=== PATIENT | male | born 1950 | race Caucasian/White ===

== ENCOUNTER 2016-11-23 23:42 | Emergency (ER) | payer MEDICARE, BC ==
[~2016-11-23] VITALS: Ht 180.3 cm; Wt 70.9 kg
[2016-11-24 00:16] VITALS: TEMP 98.2
[2016-11-24] MEDS ORDERED: BYSTOLIC5 MG PO (00:16)
[2016-11-24 01:46] LABS: BASO % 0.3 % (0.0-2.0); EOS # 0.2 (0.0-0.7); EOS % 3.3 % (0-4.0); GRAN # 3.3 (1.4-6.5); GRAN % 57.2 % (42.2-75.2); HEMATOCRIT 39.6 % (42.0-52.0); HEMOGLOBIN 13.4 g/dl (13.5-18.0); LYMPH # 1.8 (1.2-3.4); LYMPH % 30.5 % (20.0-51.0); MEAN CELL VOLUME 93 fl (80.0-100.0); MEAN CORPUSCULAR HEMOGLOBIN 32 pg (27.0-31.0); MEAN CORPUSCULAR HGB CONC 34 g/dl (33.0-37.0); MEAN PLATELET VOLUME 9.4 fl (7.4-10.4); MONO # 0.5 (0.1-0.6); MONO % 8.4 % (1.7-9.3); PLATELET COUNT 188 K/mm3 (130-400); RED BLOOD COUNT 4.24 M/mm3 (4.20-5.60); REDCELL DISTRIBUTION WIDTH-CV 13.2 % (11.5-14.5); WHITE BLOOD COUNT 5.7 K/mm3 (4.8-10.8)
[2016-11-24 01:55] LABS: ADJUSTED CALCIUM 8.7 mg/dL (8.4-10.2); ALANINE AMINOTRANSFERASE 33 U/L (21-72); ALBUMIN 4.4 gm/dL (3.5-5.0); ALKALINE PHOSPHATASE 85 U/L (50-136); ANION GAP 13 mmol/L (7-16); BILIRUBIN,TOTAL 0.5 mg/dL (0.0-1.0); BLOOD UREA NITROGEN 11 mg/dL (9-20); CARBON DIOXIDE 23 mmol/L (22-30); CHLORIDE 107 mmol/L (98-107); CREATININE, serum 0.74 mg/dL (0.66-1.25); GLUCOSE 93 mg/dL (74-106); POTASSIUM 4.1 mmol/L (3.4-5.0); SODIUM 143 mmol/L (137-145); TOTAL PROTEIN 7.2 gm/dL (6.4-8.2)
[2016-11-24 02:07] LABS: B-TYPE NATRIURETIC PEPTIDE 384 pg/mL (0-125); TROPONIN-I < 0.012 ng/mL (0.000-0.034)
[2016-11-24] MEDS ORDERED: ATIVAN 0.50.5 MG/TAB PO (02:52)
[2016-11-24 03:08] VITALS: BP 167/89; PULSE 72
== END 2016-11-24 03:12 | disposition home or self-care (01) ==
LOC: COL.ER 23:42
PROVIDERS: Nurse Practitioner
DX: R07.89 Other chest pain (principal); F41.9 Anxiety disorder, unspecified; I10 Essential (primary) hypertension

== ENCOUNTER 2018-04-07 14:25 | Day surgery (SDC) | payer MEDICARE, BC ==
[~2018-04-07] VITALS: Ht 180.3 cm; Wt 73.1 kg
[~2018-04-07 14:25] MED LIST: ATIVAN 0.50.5 MG/TAB PO; BYSTOLIC5 MG PO; CENTRUM SILVER1 CTB PO
[2018-04-07 14:49] VITALS: BP 132/89; PULSE 74; TEMP 97
[2018-04-07 16:25] VITALS: BP 112/74; PULSE 80
[2018-04-07 16:40] VITALS: BP 105/75; PULSE 65
[2018-04-07 16:55] VITALS: BP 137/84; PULSE 67
== END 2018-04-07 17:00 | disposition home or self-care (01) ==
LOC: SDCO 14:25
DX: D12.2 Benign neoplasm of ascending colon (principal); K92.1 Melena; K21.0 Gastro-esophageal reflux disease with esophagitis; I10 Essential (primary) hypertension; Z87.891 Personal history of nicotine dependence; Z80.0 Family history of malignant neoplasm of digestive organs
CPT/HCPCS: J2704; J7120

== ENCOUNTER → 2018-07-08 | Outpatient (CLI) | payer MEDICARE, BC | LOC: ZCOL.LAB 17:22 | DX: Z01.89 Encounter for other specified special examinations (principal) ==

== ENCOUNTER 2018-09-06 23:52 | Emergency (ER) | payer MEDICARE, BC ==
[~2018-09-06] VITALS: Ht 180.3 cm; Wt 73.6 kg
[2018-09-06 23:59] VITALS: TEMP 97.5
[2018-09-07 00:47] LABS: BASO # 0.1 (0.0-0.2); BASO % 0.7 % (0.0-2.0); EOS % 0.4 % (0-4.0); GRAN # 7.4 (1.4-6.5); GRAN % 81.2 % (42.2-75.2); HEMATOCRIT 37.6 % (42.0-52.0); HEMOGLOBIN 13.7 g/dl (13.5-18.0); LYMPH # 0.6 (1.2-3.4); LYMPH % 6.2 % (20.0-51.0); MEAN CELL VOLUME 93 fl (80.0-100.0); MEAN CORPUSCULAR HEMOGLOBIN 34 pg (27.0-31.0); MEAN CORPUSCULAR HGB CONC 36 g/dl (33.0-37.0); MEAN PLATELET VOLUME 9.6 fl (7.4-10.4); MONO # 0.8 (0.1-0.6); MONO % 8.7 % (1.7-9.3); PLATELET COUNT 375 K/mm3 (130-400); RED BLOOD COUNT 4.03 M/mm3 (4.20-5.60); REDCELL DISTRIBUTION WIDTH-CV 12.4 % (11.5-14.5)
[2018-09-07 00:54] LABS: ALBUMIN 4.9 gm/dL (3.5-5.0); BILIRUBIN,TOTAL 0.7 mg/dL (0.0-1.0); CALCIUM 10.3 mg/dL (8.4-10.2); CREATININE, serum 2.08 mg/dL (0.66-1.25); POTASSIUM 4.2 mmol/L (3.4-5.0); TOTAL PROTEIN 8.8 gm/dL (6.4-8.2)
[2018-09-07 02:45] VITALS: PULSE 79
[2018-09-07 03:30] VITALS: BP 129/90
== END 2018-09-07 03:40 | disposition short-term general hospital (02) ==
LOC: COL.ER 23:52
PROVIDERS: Emergency Medicine
DX: K94.09 Other complications of colostomy (principal); I10 Essential (primary) hypertension; E86.0 Dehydration; N17.9 Acute kidney failure, unspecified; E87.8 Other disorders of electrolyte and fluid balance, not elsewhere classified; C18.9 Malignant neoplasm of colon, unspecified; Z87.891 Personal history of nicotine dependence; Z90.89 Acquired absence of other organs
CPT/HCPCS: J7030

== ENCOUNTER 2019-04-19 10:32 | Emergency (ER) | payer MEDICARE, BC ==
[~2019-04-19] VITALS: Ht 180.3 cm; Wt 64.5 kg
[2019-04-19 10:37] VITALS: BP 169/83
[2019-04-19] MEDS ORDERED: LOMOTIL 0.025 M1 TAB PO (11:01)
[2019-04-19] MEDS ORDERED: IMODIUM 2MG CAPS2 MG PO (11:02)
[2019-04-19] MEDS ORDERED: PROTONIX 40MG T40 MG PO (11:02)
[2019-04-19 12:05] VITALS: PULSE 64; TEMP 97.8
== END 2019-04-19 12:05 | disposition home or self-care (01) ==
LOC: COL.ER 10:32
DX: S61.012A Laceration without foreign body of left thumb without damage to nail, initial encounter (principal); I10 Essential (primary) hypertension; W26.0XXA Contact with knife, initial encounter; Y92.009 Unspecified place in unspecified non-institutional (private) residence as the place of occurrence of the external cause

== ENCOUNTER → 2019-04-26 | Outpatient (CLI) | payer MEDICARE, BC ==
[~2019-04-26] MED LIST changes: +IMODIUM 2MG CAPS2 MG PO; +LOMOTIL 0.025 M1 TAB PO; +PROTONIX 40MG T40 MG PO
[2019-04-26 10:31] VITALS: BP 146/70; PULSE 76; TEMP 98.3
== END ==
LOC: COL.ER 10:15
DX: S61.012D Laceration without foreign body of left thumb without damage to nail, subsequent encounter (principal); X58.XXXD Exposure to other specified factors, subsequent encounter

== ENCOUNTER 2019-05-14 05:09 | Emergency (ER) | payer MEDICARE, BC ==
[~2019-05-14] VITALS: Ht 180.3 cm; Wt 65.0 kg
[2019-05-14 06:47] LABS: BASO % 0.3 % (0.0-2.0); EOS # 0.1 (0.0-0.7); GRAN # 5.9 (1.4-6.5); GRAN % 82.8 % (42.2-75.2); HEMOGLOBIN 11.1 g/dl (13.5-18.0); LYMPH # 0.7 (1.2-3.4); MEAN CELL VOLUME 90 fl (80.0-100.0); MEAN CORPUSCULAR HEMOGLOBIN 27 pg (27.0-31.0); MEAN CORPUSCULAR HGB CONC 30 g/dl (33.0-37.0); MEAN PLATELET VOLUME 10.1 fl (7.4-10.4); MONO # 0.4 (0.1-0.6); MONO % 5.5 % (1.7-9.3); PLATELET COUNT 170 K/mm3 (130-400); RED BLOOD COUNT 4.07 M/mm3 (4.20-5.60); REDCELL DISTRIBUTION WIDTH-CV 14.5 % (11.5-14.5)
[2019-05-14 06:51] LABS: HEMATOCRIT 36.5 % (42.0-52.0)
[2019-05-14 06:58] LABS: ALBUMIN 4.1 gm/dL (3.5-5.0); BILIRUBIN,TOTAL 0.5 mg/dL (0.0-1.0); CALCIUM 8.8 mg/dL (8.4-10.2); CREATININE, serum 0.88 (0.66-1.25); POTASSIUM 3.9 mmol/L (3.4-5.0); TOTAL PROTEIN 7.1 gm/dL (6.4-8.2)
[2019-05-14 08:10] VITALS: BP 160/86; PULSE 67
== END 2019-05-14 08:10 | disposition home or self-care (01) ==
LOC: COL.ER 05:09
PROVIDERS: Emergency Medicine
DX: R10.84 Generalized abdominal pain (principal); I10 Essential (primary) hypertension; Z90.89 Acquired absence of other organs
CPT/HCPCS: J1170; J2405; J3010; J7030; Q9967

== ENCOUNTER → 2020-10-25 | Day surgery (SDC) | payer MEDICARE, BC ==
[~2020-10-25] VITALS: Ht 180.3 cm; Wt 67.8 kg
[~2020-10-25] MED LIST changes: +ULTRAM 50MG TAB50 MG PO
[2020-10-25 10:13] VITALS: BP 166/104; PULSE 73; TEMP 98
[2020-10-25 11:15] VITALS: BP 125/79; PULSE 68; TEMP 97.6
--- NOTE | 2020-10-25 11:15 | NUR ---
PT TO BAY 9 VIA CART FROM ENDO ROOM, WALKED TO CHAIR, IN ROOM. ALERT AND TALKATIVE, DECLINES FOOD OR DRINK, CALL LIGHT IN REACH
[2020-10-25 11:30] VITALS: BP 146/77; PULSE 66
[2020-10-25 11:45] VITALS: BP 151/84; PULSE 66
--- NOTE | 2020-10-25 11:45 | NUR ---
DR PHAM TALK WITH PT. IV D'CD INTACT, REIVEWED DISCHARGE INST. WITH PT ON MODERATE SEDATION PRECAUTIONS AND FOLLOWUP WITH VERBAL UNDERSTANDING. PT UP AND DRESSED, DISCHARGED VIA W/C TO CAR WITH AT 1200
== END ==
LOC: SDCO 09:36
DX: K62.4 Stenosis of anus and rectum (principal); Z12.11 Encounter for screening for malignant neoplasm of colon; Z85.048 Personal history of other malignant neoplasm of rectum, rectosigmoid junction, and anus; Z98.0 Intestinal bypass and anastomosis status; I10 Essential (primary) hypertension; Z79.899 Other long term (current) drug therapy; Z87.891 Personal history of nicotine dependence
CPT/HCPCS: J2704; J7120

== ENCOUNTER 2023-05-25 23:47 | Inpatient (IN) | payer MEDICARE, BC ==
[~2023-05-25] VITALS: Ht 180.3 cm; Wt 59.4 kg
[~2023-05-25 23:47] MED LIST changes: +ASPIRIN E.C. 8181 MG PO; +BENTYL 20MG20 MG/TAB PO; +NORCO 325 MG-51 TAB PO
[2023-05-26] VITALS (9 sets, daily range): BP systolic 124–162; BP diastolic 66–77; PULSE 69–98; TEMP 97.8–98.4
[2023-05-26 00:10] LABS: BASO % 0.2 % (0.0-2.0); EOS % 0.1 % (0.0-4.0); GRAN # 12.4 K/mm3 (1.4-6.5); GRAN % 86.4 % (42.2-75.2); HEMATOCRIT 41.5 % (42.0-52.0); HEMOGLOBIN 13.8 g/dl (13.5-18.0); LYMPH # 0.8 K/mm3 (1.2-3.4); LYMPH % 5.6 % (20.0-51.0); MEAN CELL VOLUME 91 fl (80.0-100.0); MEAN CORPUSCULAR HEMOGLOBIN 30 pg (27-31); MEAN CORPUSCULAR HGB CONC 33 g/dl (33.0-37.0); MEAN PLATELET VOLUME 9.4 fl (7.4-10.4); MONO # 1.1 K/mm3 (0.1-0.6); MONO % 7.4 % (1.7-9.3); PLATELET COUNT 258 K/mm3 (130-400); RED BLOOD COUNT 4.55 M/mm3 (4.20-5.60); REDCELL DISTRIBUTION WIDTH-CV 12.6 % (11.5-14.5)
[2023-05-26 00:34] LABS: ALBUMIN 3.5 gm/dL (3.4-4.8); BILIRUBIN,TOTAL 5.2 mg/dL (0.2-1.2); CALCIUM 9.6 mg/dL (8.4-10.2); CREATININE, serum 0.91 mg/dL (0.72-1.25); TOTAL PROTEIN 7.8 gm/dL (6.2-8.1)
--- NOTE | 2023-05-26 04:04 | NUR ---
pt arrived to room 328 at 0335. pt admission complete, med rec complete, physical shift assessment complete. pt ambulates ind without issue. pt a&o x4 but reports occasional confusion. son in room to help complete admission. pt npo per orders. pt had c/o pain when deep breathing but denies pain at this moment. pt low risk for falls but still educated to call for assistance to bathroom. call light in place. all needs met at this time.
--- NOTE | 2023-05-26 08:20 | NUR ---
pt a&ox4 resting in bed, daughter at bedside. pt denies pain. meds given and assessment complete. abdominal incisions from previous procedures are cdi. scds to ble. fluids infusing into left forearm at 125ml/hr. pt denies needs at this time. call light in reach.
--- NOTE | 2023-05-26 10:20 | NUR ---
Initial visit; Patient and family thanked [employer] for looking in on him and offering God's blessings and a "get well" message. Patient using the phone and appeared to not want to visit. [employer] wished them a nice Holiday Season.
--- NOTE | 2023-05-26 13:40 | NUR ---
boom stick worker met with patient and daughter, Mayelin, to discuss discharge planning. Patient reports he lives in [place] with his son, Morales, P# [phone]. PCP is Dr. Jain and preferred pharmacy [facility]. Patient has no issues with affording medications. Patient reports he has a DPOA-HC and it is Morales but patient does not have the copy of the form with him. Patient expressed he would try to bring it in next hospital stay. Patient has a blood pressure machine at home. Patient reports he is indpendent with ADLS. Patient has transportation to go to and from appointments with either Mayelin or Morales. Patient would like to return home at time of discharge. Discharge Plan: Home
--- NOTE | 2023-05-26 13:50 | NUR ---
pt off floor for HIDA scan
--- NOTE | 2023-05-26 16:01 | NUR ---
pt back on floor in room
--- NOTE | 2023-05-26 20:00 | NUR ---
report received from [facility]. pt resting in bed with son at bedside. pt larry pain. son states pt has been seeing things and talking to his late . pt alert and oriented with some confusion noted. call light in place. all needs met at this time.
--- NOTE | 2023-05-26 20:25 | NUR ---
updated operations project manager, dr hurley of pt confusion and lack of sleep. new order for benadryl 25mg po. call light in place. all needs met at this time.
--- NOTE | 2023-05-26 22:18 | NUR ---
shift assessment complete, see documentation. pt confused tonight. alert and oriented to self/place. daughter is at bedside. 25mg benadryl given per orders. pt denies pain. call light in place. all needs met at this time.
[2023-05-27] VITALS (19 sets, daily range): BP systolic 124–174; BP diastolic 59–95; PULSE 56–125; TEMP 97.4–101.2
--- NOTE | 2023-05-27 02:29 | NUR ---
pt had c/o chills and felt like he was running a fever. pt was covered with multiple blankets and did feel warm to the touch. pt running low grade temp of 99.2. pt also c/o 8/10 abd pain. prn norco administered per orders. pt also doing deep breathing exercises. after med administration and breathing, pt no longer has chills. pt resting in bed with daughter at bedside. call light in place. all needs met at this time.
--- NOTE | 2023-05-27 03:59 | NUR ---
pt temp has been slowly increasing and is now 101.2. called automobile brakes bonder dr hurley, new order for 600MG IBU Q6H PRN. prn motrin administered per orders. pt not having any chills but is a bit diaphoretic. all other vss. call light in place. all needs met at this time.
--- NOTE | 2023-05-27 05:03 | NUR ---
pt temp now 98.4. pt is no longer diaphoretic and is asymptomatic. pt reports he is not having pain. call light in place. all needs met at this time.
--- NOTE | 2023-05-27 09:28 | NUR ---
PT RESTING IN BED WITH PAIN 09/21. PAIN MEDICAITON PROVIDED PER EMAR. TENDERNESS IN ABDOMEN BUT INCISIONS WELL APPROX. PT AMBULATES AROUND ROOM STEADY GAIT. FAMILY AT BEDISDE. PT REMAINS NPO. WILL CONTINUE TO MONITOR.
--- NOTE | 2023-05-27 19:21 | NUR ---
report received from [facility]. pt sitting in bed c/o increased pain. prn 2mg iv morphine administered per orders for 10/10 pain to the ruq. dr song called for an update. new orders for stat cmp and lipase. lab have been drawn. waiting for results. son at bedside. call light in place. all needs met at this time.
[2023-05-27 19:39] LABS: ALBUMIN 2.7 gm/dL (3.4-4.8); BILIRUBIN,TOTAL 4.2 mg/dL (0.2-1.2); CALCIUM 8.8 mg/dL (8.4-10.2); CREATININE, serum 0.77 mg/dL (0.72-1.25); POTASSIUM 3.5 mmol/L (3.5-4.5); TOTAL PROTEIN 6.6 gm/dL (6.2-8.1)
--- NOTE | 2023-05-27 21:40 | NUR ---
shift assessment complete, see documentation. pt has been struggling with pain control since ercp this afternoon. pt requested prn dilaudid. prn was given per orders for 6/10 pain. pt is resting in bed and reporting he is more comfortable. pt has a ziploc bag with hot towels inside for heating pad placed on abd and expressed that this has provided relief. pt son still at bedside. call light in place. all needs met at this time.
--- NOTE | 2023-05-27 22:48 | NUR ---
pt requesting prn morphine for pain. prn administered per orders. call light in place. all needs met at this time.
[2023-05-28] VITALS (12 sets, daily range): BP systolic 138–155; BP diastolic 58–90; PULSE 64–132; TEMP 98–98.7
--- NOTE | 2023-05-28 00:19 | NUR ---
pt requesting prn dilaudid for pain. prn administered per orders. pt reporting his pain is finally starting to get under control and he is headed to sleep. call light in place. all needs met at this time.
--- NOTE | 2023-05-28 09:10 | NUR ---
pt a&ox4 resting in bed. meds given and assessment complete. pt denies pain. fluids running at 125ml/hr. pt tolerated clear liquids this morning. refused morning labs. call light in reach.
[2023-05-28 15:35] LABS: BASO % 0.2 % (0.0-2.0); EOS # 0.1 K/mm3 (0.0-0.7); EOS % 0.7 % (0.0-4.0); GRAN # 7.3 K/mm3 (1.4-6.5); GRAN % 86.1 % (42.2-75.2); LYMPH # 0.4 K/mm3 (1.2-3.4); LYMPH % 5.2 % (20.0-51.0); MEAN CELL VOLUME 89 fl (80.0-100.0); MEAN CORPUSCULAR HGB CONC 33 g/dl (33.0-37.0); MEAN PLATELET VOLUME 9.7 fl (7.4-10.4); MONO # 0.6 K/mm3 (0.1-0.6); MONO % 7.3 % (1.7-9.3); PLATELET COUNT 206 K/mm3 (130-400); REDCELL DISTRIBUTION WIDTH-CV 12.9 % (11.5-14.5)
[2023-05-28 15:37] LABS: HEMATOCRIT 29.4 % (42.0-52.0); HEMOGLOBIN 9.8 g/dl (13.5-18.0); MEAN CORPUSCULAR HEMOGLOBIN 30 pg (27-31)
--- NOTE | 2023-05-28 19:06 | NUR ---
RECEIVED SHIFT REPORT FROM LIZETH DOWNS. PATIENT IS IN BED RESTING IN BED, WATCHING TV, WITH FAMILY AT BEDSIDE. PATIENT HAS RECEIVED PAIN MEDICATION RECENTLY. PATIENT HAS ONE INT SITE IN HIS LEFT FOREARM. VITAL SIGNS ARE STABLE AND CALL LIGHT IS WITHIN REACH.
[2023-05-29 01:00] VITALS: BP_SYST 147
[2023-05-29 03:37] VITALS: BP 129/75; PULSE 96; TEMP 97.7
[2023-05-29 05:00] VITALS: BP_SYST 129
[2023-05-29 06:32] LABS: ALBUMIN 2.4 gm/dL (3.4-4.8); BILIRUBIN,TOTAL 4.8 mg/dL (0.2-1.2); CALCIUM 8.6 mg/dL (8.4-10.2); CREATININE, serum 0.7 mg/dL (0.72-1.25); HEMOGLOBIN 10.3 g/dl (13.5-18.0); POTASSIUM 3.1 mmol/L (3.5-4.5); TOTAL PROTEIN 5.9 gm/dL (6.2-8.1)
[2023-05-29 06:35] LABS: HEMATOCRIT 31.2 % (42.0-52.0)
[2023-05-29 07:38] VITALS: BP 166/82; PULSE 74; TEMP 97.7
[2023-05-29] MEDS ORDERED: FLAGYL500 MG PO (08:00)
[2023-05-29] MEDS ORDERED: CIPRO 500MG TA500 MG PO (08:00)
--- NOTE | 2023-05-29 08:44 | NUR ---
DISCHARGE INSTRUCTIONS PROVIDED. PATIENT EDUCATION GIVEN. IV DC'D. FOLLOW UP APPOINTMENTS DISCUSSED. MEDICATIONS REVIEWED. PATIENT DENIES ANY QUESTIONS OR CONCERNS. PATIENT AND BELONGINGS ESCORTED OUT VIA WHEELCHAIR.
== END 2023-05-29 08:48 | disposition home or self-care (01) | DRG 444 ==
LOC: COL.ER 23:47 → SURG 05-26 02:31
PROVIDERS: Internal Medicine Gastroenterology; Nurse Practitioner Primary Care; Surgery; ADMIT Surgery
PROC: 0F798DZ Dilation of Common Bile Duct with Intraluminal Device, Via Natural or Artificial Opening Endoscopic (ICD-10-PCS; principal; 2023-05-26)
PROC: 0FC98ZZ Extirpation of Matter from Common Bile Duct, Via Natural or Artificial Opening Endoscopic (ICD-10-PCS; 2023-05-26)
DX: K80.50 Calculus of bile duct without cholangitis or cholecystitis without obstruction (principal); K83.2 Perforation of bile duct; I10 Essential (primary) hypertension
CPT/HCPCS: A9537-JZ; C1769; C2625; J1170; J1885; J2270; J2543; J2704; J7030; Q9967